=== PATIENT | male | born 1930 | race Caucasian/White ===

== ENCOUNTER → 2016-08-23 | Outpatient (CLI) | payer MEDICARE ==
[~2016-08-23] MED LIST: ASPI-496 PO; CHOL100018 PO; DABI150C PO; ESOM40CA PO; METO-93 PO; METO-99 PO; METO50TA82 PO; NIAC500T4 PO; SUCR1ORA11 PO; TRIA1CAP3 PO
== END | disposition home or self-care (01) ==
LOC: CFH 14:20
PROVIDERS: ATTEND Family Medicine
DX: S79.911A Unspecified injury of right hip, initial encounter (principal); M47.896 Other spondylosis, lumbar region; I70.201 Unspecified atherosclerosis of native arteries of extremities, right leg; Z91.81 History of falling; Y93.89 Activity, other specified; Y92.89 Other specified places as the place of occurrence of the external cause; Y99.8 Other external cause status

== ENCOUNTER → 2018-03-22 | Outpatient (CLI) | payer MEDICARE ==
[~2018-03-22] MED LIST changes: +CHOL100012 PO; -CHOL100018 PO
== END | disposition home or self-care (01) ==
LOC: CFH 08:50
PROVIDERS: ATTEND Psychiatry & Neurology Neurology
DX: G93.89 Other specified disorders of brain (principal); F03.90 Unspecified dementia, unspecified severity, without behavioral disturbance, psychotic disturbance, mood disturbance, and anxiety; Z86.73 Personal history of transient ischemic attack (TIA), and cerebral infarction without residual deficits
CPT/HCPCS: 70450

== ENCOUNTER → 2018-04-08 | Outpatient (CLI) | payer MEDICARE | END | disposition home or self-care (01) | LOC: CFH 15:25 | PROVIDERS: ATTEND Psychiatry & Neurology Neurology | DX: E04.1 Nontoxic single thyroid nodule (principal); I67.89 Other cerebrovascular disease | CPT/HCPCS: 93880 ==

== ENCOUNTER → 2018-05-15 | Outpatient (CLI) | payer MEDICARE | END | disposition home or self-care (01) | LOC: CFH 08:35 | PROVIDERS: ATTEND Family Medicine | DX: E04.2 Nontoxic multinodular goiter (principal); R63.4 Abnormal weight loss | CPT/HCPCS: 76536 ==